=== PATIENT | female | born 1960 | race Caucasian/White ===

== ENCOUNTER 2016-11-10 14:53 | Day surgery (SDC) | payer MEDICARE ==
[~2016-11-10 14:53] MED LIST: AMITIZA24 MCG PO; ASPIR 8181 M1 PO; ATIVAN1 M1 PO; ATIVAN1 M2 PO; ATORVASTATIN CA80 M1 PO; BENZTROPINE ME0.5 M1 PO; CLONAZEPAM0.5 M2 PO; CPAP; CYMBALTA30 M1 PO; CYMBALTA30 MG PO; GLUCAGON EME1 MG/KIT IJ; HUMALOG MI100 UNIT/3 SQ; HUMALOG100 UNIT/2 SQ; HYDROCODONE/APA1 TAB PO; LANTUS100 U/ML SC; LEVAQUIN750 M1 PO; LEXAPRO20 M2 PO; LIDODERM30 EA TP; LINZESS PO; LISINOPRIL10 MG PO; LISINOPRIL5 MG PO; MUCUS PO; OMEPRAZOLE40 M2 PO; OMEPRAZOLE40 MG PO; OXYCONTIN40 MG PO; OXYCONTIN60 MG PO; PRAVACHOL40 MG PO; PREDNISONE20 M1 PO; RISPERDAL1 M1 PO; RISPERDAL2 M2 PO; RISPERDAL2 MG PO; SYNTHROID100 MCG PO; SYNTHROID150 MC1 PO; TOUJEO SOL300 UNIT/1 SC; TRAZODONE50 MG PO; VENTOLIN HFA18 G2 INH; ZOFRAN8 MG PO; [UNRECOGNIZED DRUG - OTHER] PO
[2016-11-10 17:08] LABS: URINE BILIRUBIN NEGATIVE (NEG); URINE BLOOD MODERATE (NEG); URINE GLUCOSE (UA) MODERATE (NEG); URINE KETONE NEGATIVE (NEG); URINE LEUKOCYTE ESTERASE NEGATIVE (NEG); URINE NITRITE NEGATIVE (NEG); URINE PROTEIN SMALL (NEG); URINE SPECIFIC GRAVITY 1.015 (1.003-1.030)
[2016-11-10 17:10] LABS: URINE APPEARANCE HAZY; URINE COLOR YELLOW
[2016-11-10 17:20] LABS: URINE WBC 0-1 /[HPF] (0-5)
[2016-11-10 17:21] LABS: URINE BACTERIA 1+; URINE RBC 0-3 /[HPF] (0-5)
[2016-11-10 17:56] LABS: ALB/GLOB RATIO 0.9 (0.8-2.0); ALBUMIN 3.4 g/dl (3.5-5.0); ALKALINE PHOSPHATASE 113 U/L (33-138); ALT/SGPT 53 U/L (12-78); ANION GAP 10 mmol/L (0-20); AST/SGOT 35 U/L (10-40); BILIRUBIN,TOTAL 0.5 mg/dl (0-1.5); BLOOD UREA NITROGEN 7 mg/dl (6-24); C-REACTIVE PROTEIN 4.8 mg/dl (0-0.9); CALCIUM 8.9 mg/dl (8.5-10.5); CARBON DIOXIDE-VENOUS 32 mmol/L (22-32); CHLORIDE 101 mmol/l (96-110); CREATININE 0.71 mg/dl (0.50-1.10); GLUCOSE 139 mg/dL (70-110); POTASSIUM 3.7 mmol/L (3.7-5.1); SODIUM 139 mmol/L (135-145); eGFR VALUE FOR BLACK >90 mL/Min
[2016-11-11 05:25] LABS: HCT-HEMATOCRIT 36.2 % (34.0-49.0); HGB-HEMOGLOBIN 12.2 gm/dl (12.0-15.5); MCH (MEAN CORPUSCULAR HGB) 30.6 pg (28.0-32.0); MCHC MEAN CORPUSCULAR HGB CONC 33.7 % (32.0-36.0); MCV (MEAN CELL VOLUME) 90.7 fl (82.0-96.0); MEAN PLATELET VOLUME 10.4 cmc (9.4-12.4); NEUTROPHIL-AUTOMATED 4.8 tho/cmm (1.6-8.0); PLATELET COUNT 189 tho/cmm (150-450); RED BLOOD COUNT 3.99 mil/cmm (4.00-5.20); RED CELL DISTRIBUTION WIDTH 12.6 % (12.4-16.4); WHITE BLOOD COUNT 9.1 tho/cmm (4.0-10.0)
[2016-11-11 06:42] LABS: BAND % 3 % (0-20); BAND ABSOLUTE COUNT 0.3 tho/cmm (0-2.0)
[2016-11-11 06:43] LABS: WBC MORPHOLOGY VARIANT LYMPHS
[2016-11-11] MEDS ORDERED: CYMBALTA60 M1 PO (09:06)
[2016-11-13] MEDS ORDERED: TYLENOL325 M2 PO (08:52)
[2016-11-13] MEDS ORDERED: CLEOCIN HCL300 M1 PO (08:56)
[2016-11-13] MEDS ORDERED: PROBIOTIC ACID PO (08:58)
[2016-11-13] MEDS ORDERED: LORTAB 7.5-3251 EAC1 PO (08:58)
[2016-11-13] MEDS ORDERED: LORTAB PO (09:13)
== END 2016-11-13 09:50 ==
LOC: CAR1 14:53 → ORW 11-12 14:58 → PACU 11-12 15:48 → CAR1 11-12 16:45
PROVIDERS: Family Medicine
PROC: 0CDXXZ0 Extraction of Lower Tooth, Single, External Approach (ICD-10-PCS; principal; 2016-11-12)
PROC: 0CDWXZ1 Extraction of Upper Tooth, Multiple, External Approach (ICD-10-PCS; 2016-11-12)
DX: K08.89 Other specified disorders of teeth and supporting structures (principal); R50.9 Fever, unspecified; G93.40 Encephalopathy, unspecified; I10 Essential (primary) hypertension; M19.90 Unspecified osteoarthritis, unspecified site; E03.9 Hypothyroidism, unspecified; F41.9 Anxiety disorder, unspecified; F32.9 Major depressive disorder, single episode, unspecified; K21.9 Gastro-esophageal reflux disease without esophagitis; F10.21 Alcohol dependence, in remission; F17.210 Nicotine dependence, cigarettes, uncomplicated; E10.42 Type 1 diabetes mellitus with diabetic polyneuropathy; E10.319 Type 1 diabetes mellitus with unspecified diabetic retinopathy without macular edema; E10.65 Type 1 diabetes mellitus with hyperglycemia; G25.81 Restless legs syndrome; G47.33 Obstructive sleep apnea (adult) (pediatric); F41.8 Other specified anxiety disorders; Z79.4 Long term (current) use of insulin; Z79.82 Long term (current) use of aspirin; Z79.899 Other long term (current) drug therapy; Z98.49 Cataract extraction status, unspecified eye; Z98.890 Other specified postprocedural states
CPT/HCPCS: G0378; G0379; J0295; J1815; J7030; J7050